=== PATIENT | female | born 1960 | race Caucasian/White ===

== ENCOUNTER → 2017-03-28 | Outpatient (CLI) | payer OTHER ==
--- NOTE | 2017-03-28 13:17 | USB ---
Reason for exam: follow-up at short interval from prior study. History: Benign US biopsy breast VAD LT of the left breast, August 30, 2016. US discontinued breast bx LT of the left breast, August 16, 2016. Physical Findings: Nurse did not find any significant physical abnormalities on exam. US Breast LT Left breast ultrasound includes all four quadrants, the retroareolar region and axilla. Finding demonstrate a cluster 2.1 x 1.2 x 1.3cm oval, lobular, hypoechoic lesion at 12 o'clock, stable and larger, biopsied with benign results, a 1.0 x 1.1 x 0.4cm oval, hypoechoic lesion at 12 o'clock, stable and larger, biopsied with benign results, a 0.4 x 0.3 x 0.2cm oval, too small to characterize lesion at 3 o'clock, and ducts at 11 o'clock. These results were verbally communicated with the patient and result sheet given to the patient on 03/28/17. ASSESSMENT: Benign, BI-RAD 2 RECOMMENDATION: Routine screening mammogram of both breasts in 3 months. Back on schedule June 2017.
== END | disposition home or self-care (01) ==
LOC: RADUSWWP 10:04
PROVIDERS: ATTEND Surgery
DX: R92.8 Other abnormal and inconclusive findings on diagnostic imaging of breast (principal)

== ENCOUNTER → 2017-07-24 | Outpatient (CLI) | payer OTHER ==
--- NOTE | 2017-07-26 09:59 | MM ---
Reason for exam: screening (asymptomatic). Last mammogram was performed 11 months ago. History: Benign US biopsy breast VAD LT of the left breast, August 30, 2016. US discontinued breast bx LT of the left breast, August 16, 2016. Physical Findings: A clinical breast exam by your physician is recommended on an annual basis and results should be correlated with mammographic findings. MG Screening Mammo w CAD Bilateral CC and MLO view(s) were taken. Prior study comparison: August 30, 2016, left breast MG diagnostic mammo LT wo CAD. The breast tissue is heterogeneously dense. This may lower the sensitivity of mammography. 1.3cm focal asymmetry upper outer quadrant of the right breast at posterior depth approximately 11cm from nipple. ASSESSMENT: Incomplete: need additional imaging evaluation, BI-RAD 0 RECOMMENDATION: Special view mammogram of the right breast. If lesion persists on supplemental views, image directed ultrasound is recommended. [facility] will attempt to contact patient to return for supplemental views and ultrasound if indicated.
== END | disposition home or self-care (01) ==
LOC: RADMAMWWP 13:47
PROVIDERS: ATTEND Pediatrics
DX: Z12.31 Encounter for screening mammogram for malignant neoplasm of breast (principal)

== ENCOUNTER → 2017-07-27 | Outpatient (CLI) | payer OTHER ==
--- NOTE | 2017-07-27 10:59 | MM ---
Reason for exam: additional evaluation requested from abnormal screening. Last mammogram was performed less than 1 month ago. History: Patient is postmenopausal and is nulliparous. Family history of breast cancer in paternal aunt. Benign US biopsy breast VAD LT of the left breast, August 30, 2016. US discontinued breast bx LT of the left breast, August 16, 2016. Physical Findings: Nurse did not find any significant physical abnormalities on exam. MG Work Up Mamm w CAD RT CC and MLO view(s) were taken of the right breast. Prior study comparison: July 24, 2017, bilateral MG screening mammo w CAD. March 28, 2017, left breast US breast LT. August 30, 2016, left breast MG diagnostic mammo LT wo CAD. The breast tissue is heterogeneously dense. This may lower the sensitivity of mammography. 1.3cm focal asymmetry upper outer quadrant in the right breast persists on spot compression views. Ultrasound was subsequently performed. These results were verbally communicated with the patient and result sheet given to the patient on 07/27/17. ASSESSMENT: Incomplete: need additional imaging evaluation, BI-RAD 0 RECOMMENDATION: Ultrasound of the right breast.
--- NOTE | 2017-07-27 11:01 | USB ---
Reason for exam: additional evaluation requested from abnormal screening. History: Patient is postmenopausal and is nulliparous. Family history of breast cancer in paternal aunt. Benign US biopsy breast VAD LT of the left breast, August 30, 2016. US discontinued breast bx LT of the left breast, August 16, 2016. US Breast Workup Limited RT Right breast ultrasound demonstrates a 0.6 x 0.9 x 0.5cm oval, hypoechoic lesion with posterior shadowing at 9 o'clock. These results were verbally communicated with the patient and result sheet given to the patient on 07/27/17. ASSESSMENT: Suspicious, BI-RAD 4 RECOMMENDATION: Ultrasound core biopsy of the right breast. Called Dr. Griggs with mammographic findings and has scheduled an appointment for the patient for 08/03/17 at 11:[address] Viera. PRELIMINARY REPORT CALLED AND FAXED TO DR. VIERA ON 07/27/17/TP.
== END | disposition home or self-care (01) ==
LOC: RADMAMWWP 09:23
PROVIDERS: ATTEND Pediatrics
DX: R92.8 Other abnormal and inconclusive findings on diagnostic imaging of breast (principal)
CPT/HCPCS: 76642; G0206

== ENCOUNTER → 2017-08-07 | Day surgery (SDC) | payer OTHER ==
[2017-08-07 11:33] VITALS: RESP 16; BMI 43.0
--- NOTE | 2017-08-07 12:52 | USB ---
EXAMINATION TYPE: US biopsy breast VAD RT, MG diagnostic mammo RT wo CAD DATE OF EXAM: 08/07/2017 CLINICAL HISTORY: R92.8 Abnormal Mammogram. TECHNIQUE: Ultrasound guided core biopsy of right breast. COMPARISON: NONE FINDINGS: The procedure of ultrasound guided core biopsy was explained to the patient. Benefits, alternatives, and risks were discussed. An informed consent was then obtained. The patient was placed in supine positioning for imaging and for the procedure. The overlying skin was prepped and draped in usual sterile fashion. 9 cc of 1% lidocaine was used as anesthetic into the skin and subcutaneous tissue up to area of concern in the right breast. Under ultrasound guidance, a 12-gauge vacuum assisted biopsy gun device was used to obtain 5 core samples. Following this, a ribbon-shaped biopsy clip was left in lesion. The patient tolerated the procedure well without any immediate complication. The patient was kept in the radiology department for short stay after the procedure and then discharged home in stable condition. Postprocedure mammogram was performed in the biopsy marker was noted to be appropriately placed without migration. IMPRESSION: Successful, uncomplicated ultrasound guided core biopsy of the suspicious right breast mass, full pathology results to follow. 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 Recommendation Follow up ultrasound of the right breast in 6 months. MARISSA
[2017-08-07 12:58] VITALS: BP 122/81; PULSE 71; TEMP 98.1
== END ==
LOC: RADUSWWP 11:09
PROVIDERS: ATTEND Surgery
DX: D24.1 Benign neoplasm of right breast (principal); N60.91 Unspecified benign mammary dysplasia of right breast; R92.8 Other abnormal and inconclusive findings on diagnostic imaging of breast
CPT/HCPCS: 88305; 19083; G0206; A4648; J2001

== ENCOUNTER → 2018-03-28 | Outpatient (CLI) | payer OTHER ==
--- NOTE | 2018-03-28 10:55 | MM ---
Reason for exam: follow-up at short interval from prior study. Last mammogram was performed 8 months ago. History: Patient is postmenopausal and is nulliparous. Family history of breast cancer in paternal aunt. Benign US biopsy breast VAD RT of the right breast, August 07, 2017. Benign US biopsy breast VAD LT of the left breast, August 30, 2016. US discontinued breast bx LT of the left breast, August 16, 2016. Physical Findings: Nurse did not find any significant physical abnormalities on exam. MG Diagnostic Mammo w CAD GEOVANNI Bilateral CC and MLO view(s) were taken. Prior study comparison: August 07, 2017, right breast MG diagnostic mammo RT wo CAD. July 27, 2017, right breast MG work up mamm w CAD RT. The breast tissue is heterogeneously dense. This may lower the sensitivity of mammography. Previous mammotome biopsy in the right and left breast. Benign biopsied fibroadenoma 12 o'clock left breast may be minimally larger. 9 o'clock biopsy clip laterally on the right breast. Adjacent small mass is smaller. These results were verbally communicated with the patient and result sheet given to the patient on 03/28/18. ASSESSMENT: Probably benign, BI-RAD 3 RECOMMENDATION: Ultrasound of the right breast.
--- NOTE | 2018-03-28 10:58 | USB ---
Reason for exam: follow-up at short interval from prior study. History: Patient is postmenopausal and is nulliparous. Family history of breast cancer in paternal aunt. Benign US biopsy breast VAD RT of the right breast, August 07, 2017. Benign US biopsy breast VAD LT of the left breast, August 30, 2016. US discontinued breast bx LT of the left breast, August 16, 2016. US Breast RT Right breast ultrasound includes all four quadrants, the retroareolar region and axilla. Finding demonstrates a 0.6 x 0.5 x 0.5cm hypoechoic lesion at 9 o'clock versus 9 x 5 x 6mm previously corresponds to recently biopsy proven fibroadenoma. No other solid or cystic lesion seen These results were verbally communicated with the patient and result sheet given to the patient on 03/28/18. ASSESSMENT: Benign, BI-RAD 2 RECOMMENDATION: Routine screening mammogram of both breasts in 1 year.
== END | disposition home or self-care (01) ==
LOC: RADMAMWWP 09:29
PROVIDERS: ATTEND Pediatrics
DX: N63.10 Unspecified lump in the right breast, unspecified quadrant (principal); R92.8 Other abnormal and inconclusive findings on diagnostic imaging of breast
CPT/HCPCS: 77066

== ENCOUNTER → 2019-04-03 | Outpatient (CLI) | payer OTHER ==
--- NOTE | 2019-04-04 09:23 | MM ---
Reason for exam: screening (asymptomatic). Last mammogram was performed 1 year ago. History: Patient is postmenopausal and is nulliparous. Family history of breast cancer in paternal aunt. Benign US biopsy breast VAD RT of the right breast, August 07, 2017. Benign US biopsy breast VAD LT of the left breast, August 30, 2016. US discontinued breast bx LT of the left breast, August 16, 2016. Physical Findings: A clinical breast exam by your physician is recommended on an annual basis and results should be correlated with mammographic findings. MG Screening Mammo w CAD Bilateral CC and MLO view(s) were taken. Prior study comparison: March 28, 2018, bilateral MG diagnostic mammo w CAD GEOVANNI. August 07, 2017, right breast MG diagnostic mammo RT wo CAD. The breast tissue is heterogeneously dense. This may lower the sensitivity of mammography. Previous mammotome biopsy in the right and left breast. There is chronic nodularity bilaterally. Chronic bilateral nipple inversions. New nodularity 9 o'clock left breast middle depth. ASSESSMENT: Incomplete: need additional imaging evaluation, BI-RAD 0 RECOMMENDATION: Special view mammogram of the left breast. If lesion persists on supplemental views, image directed ultrasound is recommended. [facility] will attempt to contact patient to return for supplemental views and ultrasound if indicated.
== END | disposition home or self-care (01) ==
LOC: RADMAMWWP 07:48
PROVIDERS: ATTEND Pediatrics
DX: Z12.31 Encounter for screening mammogram for malignant neoplasm of breast (principal)
CPT/HCPCS: 77067

== ENCOUNTER → 2019-04-09 | Outpatient (CLI) | payer OTHER ==
--- NOTE | 2019-04-09 11:52 | MM ---
Reason for exam: additional evaluation requested from abnormal screening. Last mammogram was performed less than 1 month ago. History: Patient is postmenopausal and is nulliparous. Family history of breast cancer in paternal aunt. Benign US biopsy breast VAD RT of the right breast, August 07, 2017. Benign US biopsy breast VAD LT of the left breast, August 30, 2016. US discontinued breast bx LT of the left breast, August 16, 2016. Physical Findings: Nurse did not find any significant physical abnormalities on exam. MG Work Up Mamm w CAD LT CC, MLO, and ML view(s) were taken of the left breast. Prior study comparison: April 03, 2019, bilateral MG screening mammo w CAD. March 28, 2018, bilateral MG diagnostic mammo w CAD GEOVANNI. There is a upper inner quadrant 5mm mass on the left breast 5-6cm from nipple improves on small spot compression views however precautionary ultrasound will be performed. Chronic left nipple retraction noted. Left biopsy marker and upper outer quadrant masses are stable back to 2016. These results were verbally communicated with the patient and result sheet given to the patient on 04/09/19. ASSESSMENT: Incomplete: need additional imaging evaluation, BI-RAD 0 RECOMMENDATION: Ultrasound of the left breast.
--- NOTE | 2019-04-09 11:53 | USB ---
Reason for exam: additional evaluation requested from abnormal screening. History: Patient is postmenopausal and is nulliparous. Family history of breast cancer in paternal aunt. Benign US biopsy breast VAD RT of the right breast, August 07, 2017. Benign US biopsy breast VAD LT of the left breast, August 30, 2016. US discontinued breast bx LT of the left breast, August 16, 2016. US Breast Workup Limited LT Left limited breast ultrasound including focal area of concern, retroareolar and axilla demonstrates no cystic or solid lesion seen. No sonographic correlate. These results were verbally communicated with the patient and result sheet given to the patient on 04/09/19. ASSESSMENT: Probably benign, BI-RAD 3 RECOMMENDATION: Follow-up diagnostic mammogram of the left breast in 6 months.
== END | disposition home or self-care (01) ==
LOC: RADMAMWWP 09:56
PROVIDERS: ATTEND Pediatrics
DX: R92.8 Other abnormal and inconclusive findings on diagnostic imaging of breast (principal)
CPT/HCPCS: 77065

== ENCOUNTER → 2019-10-23 | Outpatient (CLI) | payer OTHER ==
--- NOTE | 2019-10-23 10:52 | MM ---
Reason for exam: follow-up at short interval from prior study. Last mammogram was performed 6 months ago. History: Patient is postmenopausal and is nulliparous. Family history of breast cancer in paternal aunt. Benign US biopsy breast VAD RT of the right breast, August 07, 2017. Benign US biopsy breast VAD LT of the left breast, August 30, 2016. US discontinued breast bx LT of the left breast, August 16, 2016. Physical Findings: Nurse did not find any significant physical abnormalities on exam. MG 3D Diag Mammo W/Cad LT CC, MLO, and ML view(s) were taken of the left breast. Prior study comparison: April 09, 2019, left breast MG work up mamm w CAD LT. April 03, 2019, bilateral MG screening mammo w CAD. The breast tissue is heterogeneously dense. This may lower the sensitivity of mammography. Finding: There is a 4 mm round mass in the anterior middle position of the left breast. Previous mammotome biopsy in the left breast. There is a chronic nodularity in the left breast just posterior to clip. These results were verbally communicated with the patient and result sheet given to the patient on 10/23/19. ASSESSMENT: Incomplete: need additional imaging evaluation, BI-RAD 0 RECOMMENDATION: Ultrasound of the left breast.
--- NOTE | 2019-10-23 10:53 | USB ---
Reason for exam: additional evaluation requested from abnormal screening. History: Patient is postmenopausal and is nulliparous. Family history of breast cancer in paternal aunt. Benign US biopsy breast VAD RT of the right breast, August 07, 2017. Benign US biopsy breast VAD LT of the left breast, August 30, 2016. US discontinued breast bx LT of the left breast, August 16, 2016. US Breast Limited LT Left limited breast ultrasound including focal area of concern, retroareolar and axilla demonstrates a 4 x 2 x 6mm oval lesion too small to characterize at 10 o'clock, likely corresponds to nodularity, unchanged from 04/09/19 mammogram. These results were verbally communicated with the patient and result sheet given to the patient on 10/23/19. ASSESSMENT: Benign, BI-RAD 2 RECOMMENDATION: Return to routine screening mammogram schedule for both breasts. Back on schedule.
== END | disposition home or self-care (01) ==
LOC: RADMAMWWP 08:05
PROVIDERS: ATTEND Pediatrics
DX: R92.8 Other abnormal and inconclusive findings on diagnostic imaging of breast (principal)
CPT/HCPCS: 77065; 76642; G0279; 77061

== ENCOUNTER → 2020-06-05 | Outpatient (CLI) | payer OTHER ==
--- NOTE | 2020-06-08 09:31 | MM ---
Reason for exam: screening (asymptomatic). Last mammogram was performed 7 months ago. History: Patient is postmenopausal and is nulliparous. Family history of breast cancer in paternal aunt. Benign US biopsy breast VAD RT of the right breast, August 07, 2017. Benign US biopsy breast VAD LT of the left breast, August 30, 2016. US discontinued breast bx LT of the left breast, August 16, 2016. Physical Findings: A clinical breast exam by your physician is recommended on an annual basis and results should be correlated with mammographic findings. MG Screening Mammo w CAD Bilateral CC, MLO, and XCCL view(s) were taken. Prior study comparison: October 23, 2019, left breast MG 3d diag mammo w/cad LT. April 09, 2019, left breast MG work up mamm w CAD LT. April 03, 2019, bilateral MG screening mammo w CAD. March 28, 2018, bilateral MG diagnostic mammo w CAD GEOVANNI. July 24, 2017, bilateral MG screening mammo w CAD. There are scattered fibroglandular densities. No significant changes when compared with prior studies. ASSESSMENT: Benign, BI-RAD 2 RECOMMENDATION: Routine screening mammogram of both breasts in 1 year.
== END | disposition home or self-care (01) ==
LOC: RADMAMWWP 09:56
PROVIDERS: ATTEND Pediatrics
DX: Z12.31 Encounter for screening mammogram for malignant neoplasm of breast (principal)
CPT/HCPCS: 77067

== ENCOUNTER → 2021-06-14 | Outpatient (CLI) | payer OTHER ==
--- NOTE | 2021-06-16 08:14 | MM ---
Reason for exam: screening (asymptomatic). Last mammogram was performed 1 year ago. History: Patient is postmenopausal and is nulliparous. Family history of breast cancer in paternal aunt. Benign US biopsy breast VAD RT of the right breast, August 07, 2017. Benign US biopsy breast VAD LT of the left breast, August 30, 2016. US discontinued breast bx LT of the left breast, August 16, 2016. Physical Findings: A clinical breast exam by your physician is recommended on an annual basis and results should be correlated with mammographic findings. MG 3D Screening Mammo W/Cad Bilateral CC and MLO view(s) were taken. Prior study comparison: June 05, 2020, bilateral MG screening mammo w CAD. October 23, 2019, left breast MG 3d diag mammo w/cad LT. The breast tissue is heterogeneously dense. This may lower the sensitivity of mammography. Previous mammotome biopsy in the right and left breast. There is chronic nodularity in the left breast. Stable asymmetries. ASSESSMENT: Benign, BI-RAD 2 RECOMMENDATION: Routine screening mammogram of both breasts in 1 year.
== END | disposition home or self-care (01) ==
LOC: RADMAMWWP 10:02
PROVIDERS: ATTEND Pediatrics
DX: Z12.31 Encounter for screening mammogram for malignant neoplasm of breast (principal); Z78.0 Asymptomatic menopausal state; Z80.3 Family history of malignant neoplasm of breast
CPT/HCPCS: 77063; 77067

== ENCOUNTER → 2022-06-24 | Outpatient (CLI) | payer OTHER ==
--- NOTE | 2022-06-27 07:30 | MM ---
Reason for Exam: Screening (asymptomatic). Last screening mammogram was performed 12 month(s) ago. Patient History: Menarche at age 14. Patient has no children. Postmenopausal. 08/07/2017, Benign Core Biopsy on the right side. 08/30/2016, Benign Core Biopsy on the left side. 08/16/2016, US discontinued breast bx LT on the left side. Paternal aunt had breast cancer at or over age 50. Risk Values: Sydney 5 year model risk: 2.4%. NCI Lifetime model risk: 11.9%. Prior Study Comparison: 10/23/2019 Left Diagnostic Mammogram, [facility]. 06/05/2020 Bilateral Screening Mammogram, [facility]. 06/14/2021 Bilateral Screening Mammogram, [facility]. Tissue Density: The breast tissue is heterogeneously dense. This may lower the sensitivity of mammography. Findings: Analyzed By CAD. There are mammotome biopsy clips bilaterally redemonstrated. Stable oval well-circumscribed mass immediately posterior to the left-sided biopsy clip redemonstrated. Possible developing 8 mm focal asymmetric density in the right breast anterior slightly outer aspect CC slice 24. Follow-up advised. Overall Assessment: Incomplete: need additional imaging evaluation, BI-RAD 0 Management: Special View Mammogram of the right breast. New area of concern right breast. Advise diagnostic 3-D spot views and 3-D true lateral view. Electronically signed and approved by: Odin Ledesma M.D.
== END | disposition home or self-care (01) ==
LOC: RADMAMWWP 07:51
PROVIDERS: ATTEND Pediatrics
DX: Z12.31 Encounter for screening mammogram for malignant neoplasm of breast (principal); Z80.3 Family history of malignant neoplasm of breast; Z78.0 Asymptomatic menopausal state
CPT/HCPCS: 77063; 77067

== ENCOUNTER → 2022-07-08 | Outpatient (CLI) | payer OTHER ==
--- NOTE | 2022-07-12 10:47 | MM ---
Reason for Exam: Additional evaluation requested from abnormal screening. Last screening mammogram was performed less than 1 month ago. Patient History: Menarche at age 14. Patient has no children. Postmenopausal. 08/07/2017, Benign Core Biopsy on the right side. 08/30/2016, Benign Core Biopsy on the left side. 08/16/2016, US discontinued breast bx LT on the left side. Paternal aunt had breast cancer at or over age 50. Risk Values: Sydney 5 year model risk: 2.4%. NCI Lifetime model risk: 11.9%. Prior Study Comparison: 04/09/2019 Left Diagnostic Mammogram, [facility]. 10/23/2019 Left Diagnostic Mammogram, [facility]. 06/05/2020 Bilateral Screening Mammogram, [facility]. 06/14/2021 Bilateral Screening Mammogram, [facility]. 06/24/2022 Bilateral MG 3D screening mammo w/cad, [facility]. Tissue Density: Right: The breast tissue is heterogeneously dense. This may lower the sensitivity of mammography. Findings: Analyzed By CAD. No solid mass or distortion. No suspicious calcifications. Overall Assessment: Benign, BI-RAD 2 Management: Screening Mammogram of both breasts in 1 year. A clinical breast exam by your physician is recommended on an annual basis and results should be correlated with mammographic findings. This exam should not preclude additional follow-up of suspicious palpable abnormalities. Results were given to the patient verbally at the time of exam. Electronically signed and approved by: Jaleel Borja M.D. Radiologis
== END | disposition home or self-care (01) ==
LOC: RADMAMWWP 09:56
PROVIDERS: ATTEND Pediatrics
DX: R92.8 Other abnormal and inconclusive findings on diagnostic imaging of breast (principal); Z78.0 Asymptomatic menopausal state; Z80.3 Family history of malignant neoplasm of breast
CPT/HCPCS: 77065; G0279; 77061

== ENCOUNTER → 2023-07-13 | Outpatient (CLI) | payer OTHER ==
--- NOTE | 2023-07-14 08:30 | MM ---
Reason for Exam: Screening (asymptomatic). Last mammogram was performed 1 year(s) and 1 month(s) ago. Patient History: Menarche at age 14. Patient has no children. Postmenopausal. 08/07/2017, Benign Core Biopsy on the right side. 08/30/2016, Benign Core Biopsy on the left side. 08/16/2016, US discontinued breast bx LT on the left side. Paternal aunt had breast cancer at or over age 50. Risk Values: Sydney 5 year model risk: 2.5%. NCI Lifetime model risk: 11.6%. Prior Study Comparison: 06/14/2021 Bilateral Screening Mammogram, [facility]. 06/24/2022 Bilateral MG 3D screening mammo w/cad, [facility]. 07/08/2022 Right MG 3D work up w/cad RT, [facility]. Tissue Density: There are scattered fibroglandular densities. Findings: Analyzed By CAD. Pattern appears stable. There is a stable lobular density within the anterior left breast. No significant interval changes are evident. Core markers are within the bilateral breasts. No suspicious groups of microcalcifications, spiculated or lobular masses, architectural distortion or other secondary signs of malignancy are mammographically apparent. Overall Assessment: Benign, BI-RAD 2 Management: Screening Mammogram of both breasts in 1 year. A negative mammogram report should not preclude additional follow up of suspicious palpable abnormalities. Patient should continue monthly self breast exam. A clinical breast exam by your physician is recommended on an annual basis and results should be correlated with mammographic findings. Electronically signed and approved by: Pedro Sheppard D.O. Radiologis
== END | disposition home or self-care (01) ==
LOC: RADMAMWWP 10:05
PROVIDERS: ATTEND Pediatrics
DX: Z12.31 Encounter for screening mammogram for malignant neoplasm of breast (principal); Z78.0 Asymptomatic menopausal state; Z80.3 Family history of malignant neoplasm of breast
CPT/HCPCS: 77063; 77067

== ENCOUNTER → 2024-07-17 | Outpatient (CLI) | payer OTHER ==
--- NOTE | 2024-08-03 12:10 | MM ---
Reason for Exam: Screening (asymptomatic). Last screening mammogram was performed 12 month(s) ago. Patient History: Menarche at age 14. Patient has no children. Postmenopausal. 08/07/2017, Benign Core Biopsy on the right side. 08/30/2016, Benign Core Biopsy on the left side. 08/16/2016, US discontinued breast bx LT on the left side. Paternal aunt had breast cancer at or over age 50. Risk Values: Sydney 5 year model risk: 2.6%. NCI Lifetime model risk: 11.3%. Prior Study Comparison: 06/24/2022 Bilateral MG 3D screening mammo w/cad, [facility]. 07/08/2022 Right MG 3D work up w/cad RT, [facility]. 07/13/2023 Bilateral MG 3D screening mammo w/cad, [facility]. Tissue Density: There are scattered areas of fibroglandular density. Findings: Analyzed By CAD. A lateral chronic nipple inversion. A microclip on either side or biopsies. Chronic nodularity on the left and unchanged asymmetric densities on the right. There is no suspicious group of microcalcifications or new suspicious mass in either breast. Overall Assessment: Benign, BI-RAD 2 Management: Screening Mammogram of both breasts in 1 year. . Patient should continue monthly self-breast exams. A clinical breast exam by your physician is recommended on an annual basis. This exam should not preclude additional follow-up of suspicious palpable abnormalities. Note on Sydney scores and lifetime risk: 1. A Sydney score greater than 3% is considered moderate risk. If this is the case, consider specialist referral to assess eligibility for a risk reducing agent. 2. If overall lifetime risk for the development of breast cancer is 20% or higher, the patient may qualify for future screening with alternating mammogram and breast MRI. Electronically signed and approved by: Gabriella Loco M.D. Radiologist
== END | disposition home or self-care (01) ==
LOC: RADMAMWWP 18:55
PROVIDERS: ATTEND Pediatrics
DX: Z12.31 Encounter for screening mammogram for malignant neoplasm of breast (principal); R92.322 Mammographic fibroglandular density, left breast; Z78.0 Asymptomatic menopausal state; Z80.3 Family history of malignant neoplasm of breast
CPT/HCPCS: 77063; 77067